=== PATIENT | female | born 1960 | race Caucasian/White ===

== ENCOUNTER → 2016-09-14 | Outpatient (CLI) | payer OTHER ==
--- NOTE | 2016-09-14 15:53 | DIAGNOSTIC IMAGING REPORT ---
MRI LUMBAR SPINE W/O CONTRAST CLINICAL HISTORY: Low back pain. Bilateral leg weakness. TECHNIQUE: Sagittal and axial T1, T2 and STIR images were obtained. COMPARISON STUDY: No previous studies for comparison. OBSERVATIONS: The vertebral bodies and posterior elements appear intact. There is no abnormal bony signal present to suggest a marrow replacement process. On sagittal images, there is a probable disc bulge at the T11-12 level. L1-2: No disc protrusions or extrusions. No evidence of spinal canal or neural foraminal compromise. L2-3: No disc protrusions or extrusions. No evidence of spinal canal or neural foraminal compromise. L3-4: There is a minimal circumferential disc bulge. There is no significant spinal or foraminal stenosis L4-5: There is an annular fissure. There is a circumferential disc bulge slightly asymmetric to the left. There is facet joint arthropathy. There is mild spinal stenosis. There is mild left-sided foraminal narrowing. L5-S1: There is a small central disc protrusion. There is minimal deformity anterior thecal sac. There is no significant foraminal narrowing. The conus medullaris and cauda equina appear normal. IMPRESSION: 1. Mild multilevel spondylitic change 2. No evidence of suspicious marrow replacement 3. Annular fissure and minimally asymmetric disc bulge at the L4-5 level with mild spinal stenosis and mild left-sided foraminal narrowing 4. Small central disc protrusion at the L5-S1 level. Electronically signed by: Sandro Clay M.D. 09/14/2016 3:52 PM Dictated Date/Time: 09/14/2016 3:47 PM
== END | disposition home or self-care (01) ==
LOC: C.MRIBC 15:01
PROVIDERS: ATTEND Pain Medicine Interventional Pain Medicine
DX: M48.06 Spinal stenosis, lumbar region (principal); M51.27 Other intervertebral disc displacement, lumbosacral region; M47.816 Spondylosis without myelopathy or radiculopathy, lumbar region